=== PATIENT | female | born 1990 | race Caucasian/White ===

== ENCOUNTER 2017-05-03 05:22 | Emergency (ER) | payer SELFPAY ==
[~2017-05-03] VITALS: Ht 152.4 cm; Wt 39.0 kg
[~2017-05-03 05:22] MED LIST: AUGMENTIN PO; DIAZEPAM PO; NAPROXEN PO
[2017-05-03] MEDS ORDERED: NO MEDICATIONS (05:32)
== END 2017-05-03 07:08 | disposition home or self-care (01) ==
LOC: SED 05:22
DX: G43.909 Migraine, unspecified, not intractable, without status migrainosus (principal)
CPT/HCPCS: 96372; 99284; J0780; J1200; J1885

== ENCOUNTER 2017-06-23 01:29 | Emergency (ER) | payer SELFPAY ==
[~2017-06-23] VITALS: Ht 152.4 cm; Wt 40.8 kg
[~2017-06-23 01:29] MED LIST changes: +NO MEDICATIONS
== END 2017-06-23 02:21 | disposition home or self-care (01) ==
LOC: SED 01:29
DX: G43.909 Migraine, unspecified, not intractable, without status migrainosus (principal); F17.200 Nicotine dependence, unspecified, uncomplicated
CPT/HCPCS: 96372; 99283; J1885; J2550